=== PATIENT | female | born 1980 | race Two or more races ===

== ENCOUNTER 2016-05-24 07:39 | Emergency (ER) | payer OTHER ==
--- NOTE | 2016-05-24 07:57 | UCPHY ---
H & P Patient Type: New Time Seen by Provider: 05/24/16 07:45 HPI/ROS: Chief complaint: Left ear pain HPI: 36-year-old female presenting with 4 days of left ear pain. Patient denies any decrease in hearing. States that it hurts mostly behind and around her ear. Has had ear infections in the past but states that this feels different. No fevers or chills. Has not put any Q-tips anything else in her ears. Does have a history of teeth grinding but does not have any history of significant jaw pain. No neck pain. ROS: 10 point Review of Systems is negative except as noted in the HPI. Past medical history: UC Medications: Doxycycline Allergies: Penicillin Social history: Denies smoking, rare alcohol Physical exam: Gen: [Awake], [Alert], [No Distress] HEENT: [ ] Ears: She has significant tenderness to very light touch of the posterior pinna and around the external auditory canal. There is some mild erythema with few scattered tiny clear vesicles. Anicteric canal is clear. There is no cerumen. The TM is normal, nonbulging. There is no effusion. Rosalio: She has no temporomandibular joint tenderness. There are no clicks or pain with range of motion. Neck: There is no cervical lymphadenopathy, neck is supple - Family History Significant Family History: No pertinent family hx Constitutional: Initial Vital Signs Heart Rate 81 05/24/16 07:45 Respiratory Rate 18 05/24/16 07:45 Blood Pressure 121/91 H 05/24/16 07:45 O2 Sat (%) 97 05/24/16 07:45 O2 Delivery Mode Room Air Allergies/Adverse Reactions: Penicillins Allergy (Verified 05/24/16 07:48) Home Medications: Medication Instructions Recorded Doxycycline 100 mg Prepack#2 05/24/16 Hydrocodone/Acetaminophen 1 - 2 each PO Q4-6PRN PRN #10 05/24/16 [Hydrocodon-Acetaminophen 5-325] tablet Medical Decision Making ED Course/Re-evaluation: Patient does not have otitis media or otitis externa. She has findings consistent with shingles. Her symptoms have been present for greater than 4 days so antivirals will not be useful at this time. I have given a prescription for analgesia. She has been given a work note for tonight. I have instructed her to follow up with primary care in 3-4 days if symptoms are not improving or for any concerns. Departure - Departure Disposition: Home, Routine, Self-Care Clinical Impression: Shingles Condition: Good Instructions: Shingles (ED) Additional Instructions: You may take hydrocodone with acetaminophen for your pain. Follow up with primary care physician in 3-4 days if symptoms are not improving. Referrals: Tamanna Smallwood MD [[facility] – [place], [place] Primary Care Provider] - As per Instructions Stand Alone Forms: Work Excuse Prescriptions: Hydrocodone/Acetaminophen [Hydrocodon-Acetaminophen 5-325] 1 - 2 each PO Q4- 6PRN PRN #10 tablet PRN Reason: Pain, Severe - PQRS PQRS Measurement: NA
[2016-05-24 07:58] VITALS: PULSE 80; RESP 16; TEMP 98.2; O2SAT 98
[2016-05-24 08:02] VITALS: BP 121/81
== END 2016-05-24 08:05 | disposition home or self-care (01) ==
LOC: CED 07:39
DX: B02.9 Zoster without complications (principal)
CPT/HCPCS: 99203-PO; G0463-PO